=== PATIENT | male | born 1980 | race Caucasian/White ===

== ENCOUNTER 2017-12-25 10:42 | Observation (INO) ==
[2017-12-25 11:24] LABS: Bilirubin,Urine Negative (Negative); Blood,Urine Negative (Negative); Clarity,Urine Clear (Clear); Color,Urine Yellow (Yellow); Glucose,Urine (UA) Normal (Normal); Ketones,Urine Negative (Negative); Leukocyte Esterase,Urine Negative (Negative); Nitrite,Urine Negative (Negative); Protein,Urine Negative (Neg-Trace); Urobilinogen,Urine Normal (Normal)
[2017-12-25 11:49] LABS: Amphetamine Screen,Urine Negative ng/mL (Cutoff=1000); Barbiturate Screen,Urine Negative ng/mL (Cutoff=200); Benzodiazepines Screen,Urine Positive ng/mL (Cutoff=200); Cannabinoid Screen,Urine Negative ng/mL (Cutoff = 50); Cocaine Screen,Urine Positive ng/mL (Cutoff= 300); Opiate Screen,Urine Negative ng/mL (Cutoff=300); Phencyclidine Screen,Urine Negative ng/mL (Cutoff=25)
[2017-12-25 12:07] LABS: Basophils # 0.1 K/mcL (0.0-0.2); Eosinophils # 0.4 K/mcL (0.0-0.6); Eosinophils % 5.8 %; Hematocrit 31.5 % (37.5-50.1); Hemoglobin 11.4 g/dL (12.9-16.9); Immature Granulocytes % 0.3 % (0-4); Lymphocytes # 2.1 K/mcL (0.6-4.6); Lymphocytes % 29.8 %; Mean Corpuscular HGB Conc 36.2 g/dL (31.6-35.5); Mean Corpuscular Hemoglobin 33.3 pg (28.0-33.3); Mean Corpuscular Volume 92.1 fL (83.0-100.0); Mean Platelet Volume 8.8 fL (9.4-12.4); Monocytes # 0.9 K/mcL (0.0-1.3); Monocytes % 12.9 %; Neutrophils # 3.5 K/mcL (1.6-8.9); Platelet Count 199 K/mcL (140-400); Red Blood Count 3.42 M/mcL (4.19-5.50); Red Cell Distribution Width 11.9 % (11.5-14.5); Segmented Neutrophils % 50.2 %; White Blood Count 7.1 K/mcL (4.3-11.1)
[2017-12-25 12:51] LABS: Acetaminophen < 10 mcg/mL (10-20); Alanine Aminotransferase 24 Units/L (7-52); Albumin 4.3 g/dL (3.5-5.7); Albumin/Globulin Ratio 1.8 (1.1-2.2); Alkaline Phosphatase 73 Units/L (34-104); Aspartate Amino Transferase 30 Units/L (13-39); BUN/Creatinine Ratio 13 (6-26); Bilirubin,Direct 0.1 mg/dL (0.0-0.2); Bilirubin,Indirect 0.3 mg/dL (0.0-1.2); Bilirubin,Total 0.4 mg/dL (0.3-1.0); Blood Urea Nitrogen 7 mg/dL (6-20); Calcium 9.4 mg/dL (8.6-10.3); Carbon Dioxide 24 mEq/L (23-29); Chloride 89 mEq/L (98-107); Cholesterol 186 mg/dL (< 200); Ethanol 79 mg/dL (Less than 10); Globulin 2.4 g/dL (2.4-3.5); Glucose 89 mg/dL (70-105); HDL Cholesterol 63 mg/dL (40-59); LDL Cholesterol,Calculated 110 mg/dL (0-99); Osmolality,Calculated 253 (280-300); Potassium 3.5 mEq/L (3.5-5.1); Salicylate < 2.5 mg/dL (15.0-30.0); Sodium 123 mEq/L (136-145); Total Protein 6.7 g/dL (6.4-8.9); Triglycerides 64 mg/dL (< 150); eGFR For African Americans > 60 (> 60); eGFR For Non-African Americans > 60 (> 60)
[2017-12-25 13:12] LABS: Hepatitis A Antibody IgM Nonreactive (Nonreactive); Hepatitis B Core IgM Nonreactive (Nonreactive); Hepatitis B Surface Antigen Nonreactive (Nonreactive); Hepatitis C Virus Antibody Nonreactive (Nonreactive)
[2017-12-25 14:28] LABS: Phenytoin (Dilantin) 7.8 mcg/mL (10.0-20.0)
[2017-12-25 15:09] LABS: Thyroid Stimulating Hormone 1.934 mcIU/mL (0.340-5.600)
[2017-12-25] MEDS ORDERED: Acetaminophen 325 MG TABLET PO PRN (15:58)
[2017-12-25] MEDS ORDERED: Naloxone 0.4 MG/ML INJ IVP PRN (15:58)
[2017-12-25] MEDS ORDERED: *HR* LORazepam 2 MG/ML VIAL IVP PRN (16:01)
[2017-12-25] MEDS ORDERED: Ondansetron 4 MG/2 ML VIAL IVP PRN (16:03)
[2017-12-25] MEDS ORDERED: Loperamide 1 MG/5 ML UDC PO PRN (16:04)
[2017-12-25 16:15] LABS: Uric Acid 2.7 mg/dL (2.3-7.6)
[2017-12-25] MEDS ORDERED: 0.9 % Sodium Chloride 1,000 ML IVC SCH (16:30)
[2017-12-25] MEDS: *HR* Heparin 5,000 UNIT/ML VIAL SQ SCH (17:40)
[2017-12-25 19:54] LABS: BUN/Creatinine Ratio 15 (6-26); Blood Urea Nitrogen 8 mg/dL (6-20); Calcium 9.3 mg/dL (8.6-10.3); Carbon Dioxide 25 mEq/L (23-29); Chloride 95 mEq/L (98-107); Glucose 117 mg/dL (70-105); Osmolality,Calculated 269 (280-300); Potassium 3.7 mEq/L (3.5-5.1); Sodium 130 mEq/L (136-145); eGFR For African Americans > 60 (> 60); eGFR For Non-African Americans > 60 (> 60)
[2017-12-25] MEDS: levETIRAcetam 250 MG TABLET PO SCH (21:03)
[2017-12-25] MEDS: atenoloL 50 MG TABLET PO SCH (21:03)
[2017-12-26 05:10] LABS: Basophils # 0.1 K/mcL (0.0-0.2); Basophils % 1.3 %; Eosinophils # 0.5 K/mcL (0.0-0.6); Eosinophils % 8.8 %; Hematocrit 34.2 % (37.5-50.1); Hemoglobin 11.8 g/dL (12.9-16.9); Immature Granulocytes % 0.2 % (0-4); Lymphocytes # 1.7 K/mcL (0.6-4.6); Mean Corpuscular HGB Conc 34.5 g/dL (31.6-35.5); Mean Corpuscular Hemoglobin 32.6 pg (28.0-33.3); Mean Corpuscular Volume 94.5 fL (83.0-100.0); Mean Platelet Volume 8.9 fL (9.4-12.4); Monocytes # 0.8 K/mcL (0.0-1.3); Monocytes % 13.9 %; Neutrophils # 2.5 K/mcL (1.6-8.9); Platelet Count 212 K/mcL (140-400); Red Blood Count 3.62 M/mcL (4.19-5.50); Red Cell Distribution Width 12.2 % (11.5-14.5); Segmented Neutrophils % 44.8 %; White Blood Count 5.5 K/mcL (4.3-11.1)
[2017-12-26 05:25] LABS: BUN/Creatinine Ratio 18 (6-26); Blood Urea Nitrogen 10 mg/dL (6-20); Calcium 9.5 mg/dL (8.6-10.3); Carbon Dioxide 23 mEq/L (23-29); Chloride 103 mEq/L (98-107); Glucose 124 mg/dL (70-105); Osmolality,Calculated 280 (280-300); Potassium 4.2 mEq/L (3.5-5.1); Sodium 135 mEq/L (136-145); eGFR For African Americans > 60 (> 60); eGFR For Non-African Americans > 60 (> 60)
[2017-12-26] MEDS: *HR* Heparin 5,000 UNIT/ML VIAL SQ SCH (06:12)
[2017-12-26] MEDS ORDERED: Folic Acid 1 MG TABLET PO SCH (09:00)
[2017-12-26] MEDS ORDERED: amLODIPine 5 MG TABLET PO SCH (09:00)
[2017-12-26] MEDS ORDERED: Fluticasone Propionate Nasal 50 MCG/SPRAY BOTTLE NS SCH (09:00)
[2017-12-26] MEDS ORDERED: Loratadine 10 MG TABLET PO SCH (09:00)
[2017-12-26] MEDS ORDERED: lisinopriL 20 MG TABLET PO SCH (09:00)
[2017-12-26] MEDS ORDERED: Thiamine (B-1) 100 MG TABLET PO SCH (09:00)
[2017-12-26] MEDS: atenoloL 50 MG TABLET PO SCH (10:05)
[2017-12-26] MEDS: levETIRAcetam 250 MG TABLET PO SCH (10:08)
[2017-12-26 11:28] VITALS: BP 136/90
== END 2017-12-26 14:54 | disposition other institution (70) ==
LOC: EMEROOARM 10:42 → 2NENU 10:42
PROVIDERS: ADMIT Internal Medicine; ATTEND Internal Medicine

== ENCOUNTER 2019-11-24 01:40 | Inpatient (IN) ==
[2019-11-24] MEDS ORDERED: Naloxone 0.4 MG/ML INJ IVP PRN (02:00)
[2019-11-24] MEDS ORDERED: Ondansetron 4 MG/2 ML VIAL IVP PRN (02:00)
[2019-11-24] MEDS ORDERED: *HR* LORazepam 2 MG/ML VIAL IVP PRN ×3 (02:08)
[2019-11-24 02:47] LABS: Adenovirus Not Detected (Not Detect); Coronavirus 229E Not Detected (Not Detect); Coronavirus HKU1 Not Detected (Not Detect); Coronavirus NL63 Not Detected (Not Detect); Coronavirus OC43 Not Detected (Not Detect)
[2019-11-24 02:49] LABS: Bordetella Pertussis Not Detected (Not Detect); Chlamydophila pneumoniae Not Detected (Not Detect); Human Metapneumovirus Not Detected (Not Detect); Human Rhinovirus/Enterovirus Not Detected (Not Detect); Influenza A Subtype 2009 H1 Not Detected (Not Detect); Influenza B Not Detected (Not Detect); Mycoplasma pneumoniae Not Detected (Not Detect); Parainfluenza Virus 1 Not Detected (Not Detect); Parainfluenza Virus 2 Not Detected (Not Detect); Parainfluenza Virus 3 Not Detected (Not Detect); Parainfluenza Virus 4 Not Detected (Not Detect); Respiratory Syncytial Virus Not Detected (Not Detect)
[2019-11-24] MEDS: Pantoprazole 40 MG in 0.9 % Sodium Chloride Mini Bag 100 ML IVC SCH ×5 (04:10→22:33)
[2019-11-24] MEDS: Ringers Solution, Lactated 1,000 ML IVC SCH ×2 (04:11→11:28)
[2019-11-24 04:48] LABS: Basophils # 0.1 K/mcL (0.0-0.2); Basophils % 1.4 %; Eosinophils # 0.1 K/mcL (0.0-0.6); Eosinophils % 3.3 %; Hematocrit 23.8 % (37.5-50.1); Immature Granulocytes % 0.7 % (0-4); Lymphocytes # 1.1 K/mcL (0.6-4.6); Lymphocytes % 26.5 %; Mean Corpuscular Hemoglobin 33.5 pg (28.0-33.3); Mean Corpuscular Volume 98.3 fL (83.0-100.0); Mean Platelet Volume 9.5 fL (9.4-12.4); Monocytes # 0.6 K/mcL (0.0-1.3); Monocytes % 12.9 %; Neutrophils # 2.4 K/mcL (1.6-8.9); Platelet Count 150 K/mcL (140-400); Red Blood Count 2.42 M/mcL (4.19-5.50); Red Cell Distribution Width 12.2 % (11.5-14.5); Segmented Neutrophils % 55.2 %; White Blood Count 4.3 K/mcL (4.3-11.1)
[2019-11-24 04:49] LABS: INR 1.1; Prothrombin Time 12.2 Seconds (9.4-12.1)
[2019-11-24 04:52] LABS: Hemoglobin 8.1 g/dL (12.9-16.9)
[2019-11-24 05:04] LABS: Alanine Aminotransferase 40 Units/L (7-52); Albumin 3.4 g/dL (3.5-5.7); Albumin/Globulin Ratio 1.8 (1.1-2.2); Alkaline Phosphatase 47 Units/L (34-104); Aspartate Amino Transferase 45 Units/L (13-39); BUN/Creatinine Ratio 34 (6-26); Bilirubin,Total 0.6 mg/dL (0.3-1.0); Blood Urea Nitrogen 21 mg/dL (6-20); Calcium 8.6 mg/dL (8.6-10.3); Carbon Dioxide 18 mEq/L (23-29); Chloride 106 mEq/L (98-107); Globulin 1.9 g/dL (2.4-3.5); Glucose 85 mg/dL (70-105); Magnesium 1.5 mg/dL (1.6-2.6); Osmolality,Calculated 282 (280-300); Phosphorous 2.8 mg/dL (2.7-4.5); Potassium 3.8 mEq/L (3.5-5.1); Sodium 135 mEq/L (136-145); Total Protein 5.3 g/dL (6.4-8.9); eGFR For African Americans > 60 (> 60); eGFR For Non-African Americans > 60 (> 60)
[2019-11-24 10:40] LABS: Hematocrit 21.3 % (37.5-50.1); Hemoglobin 7.2 g/dL (12.9-16.9)
[2019-11-24] MEDS ORDERED: 0.9 % Sodium Chloride 500 ML IVC ONE (11:14)
[2019-11-24] MEDS ORDERED: 0.9 % Sodium Chloride 500 ML ONE (11:16)
[2019-11-24] MEDS ORDERED: 0.9 % Sodium Chloride 250 ML ONE ×2 (11:22→15:04)
[2019-11-24] MEDS ORDERED: Lidocaine -MPF 2% 2 ML VIAL ONE (13:31)
[2019-11-24] MEDS ORDERED: *HR* Propofol 200 MG/20 ML VIAL IVP ONE (13:32)
[2019-11-24] MEDS ORDERED: Ondansetron 4 MG/2 ML VIAL ONE (13:38)
[2019-11-24] MEDS ORDERED: *HR* Midazolam HCl 2 MG/2 ML VIAL ONE (13:40)
[2019-11-24] MEDS ORDERED: EPINEPHrine 1 MG/ML VIAL IM ONE (14:11)
[2019-11-24] MEDS ORDERED: 0.9 % Sodium Chloride 500 ML IVC PRN (14:27)
[2019-11-24] MEDS ORDERED: *HR* EPINEPHrine 1 MG/10 ML SYRINGE ONE (14:38)
[2019-11-24] MEDS: Thiamine (B-1) 100 MG, Folic Acid 1 MG, MVI, adult with vitamin K 10 ML in 0.9 % Sodi... IVPB SCH (17:07)
[2019-11-24 19:34] LABS: Hematocrit 23.9 % (37.5-50.1); Hemoglobin 8.1 g/dL (12.9-16.9)
[2019-11-24] MEDS: Albuterol 2.5 MG/3 ML NEBULIZER IH PRN (19:39)
[2019-11-25] MEDS ORDERED: Benzocaine/Menthol 56 GM AEROSOL SPRAY TP PRN (00:15)
[2019-11-25 01:12] LABS: Hematocrit 20.8 % (37.5-50.1); Hemoglobin 7.3 g/dL (12.9-16.9); Hemoglobin 7.4 g/dL (12.9-16.9); Mean Corpuscular HGB Conc 35.1 g/dL (31.6-35.5); Mean Corpuscular Hemoglobin 32.3 pg (28.0-33.3); Mean Platelet Volume 9.8 fL (9.4-12.4); Red Blood Count 2.26 M/mcL (4.19-5.50); Red Cell Distribution Width 15.5 % (11.5-14.5); White Blood Count 5.3 K/mcL (4.3-11.1)
[2019-11-25 01:13] LABS: Platelet Count 94 K/mcL (140-400)
[2019-11-25 01:31] LABS: Alanine Aminotransferase 23 Units/L (7-52); Albumin 2.7 g/dL (3.5-5.7); Albumin/Globulin Ratio 1.8 (1.1-2.2); Alkaline Phosphatase 32 Units/L (34-104); Aspartate Amino Transferase 27 Units/L (13-39); BUN/Creatinine Ratio 35 (6-26); Bilirubin,Total 0.6 mg/dL (0.3-1.0); Blood Urea Nitrogen 19 mg/dL (6-20); Calcium 7.8 mg/dL (8.6-10.3); Carbon Dioxide 18 mEq/L (23-29); Chloride 108 mEq/L (98-107); Globulin 1.5 g/dL (2.4-3.5); Glucose 82 mg/dL (70-105); Osmolality,Calculated 281 (280-300); Potassium 3.6 mEq/L (3.5-5.1); Sodium 135 mEq/L (136-145); Total Protein 4.2 g/dL (6.4-8.9); eGFR For African Americans > 60 (> 60); eGFR For Non-African Americans > 60 (> 60)
[2019-11-25] MEDS: Pantoprazole 40 MG in 0.9 % Sodium Chloride Mini Bag 100 ML IVC SCH ×5 (03:31→23:11)
[2019-11-25 07:19] LABS: Hematocrit 21.9 % (37.5-50.1); Hemoglobin 7.7 g/dL (12.9-16.9)
[2019-11-25] MEDS: Fluticasone Propionate Nasal 50 MCG/SPRAY BOTTLE NS SCH (07:35)
[2019-11-25] MEDS: Albuterol 2.5 MG/3 ML NEBULIZER IH PRN ×2 (07:42→21:44)
[2019-11-25 12:25] LABS: Hematocrit 21.2 % (37.5-50.1); Hemoglobin 7.4 g/dL (12.9-16.9)
[2019-11-25] MEDS: Thiamine (B-1) 100 MG, Folic Acid 1 MG, MVI, adult with vitamin K 10 ML in 0.9 % Sodi... IVPB SCH (16:27)
[2019-11-25 21:09] LABS: Hemoglobin 7.6 g/dL (12.9-16.9)
[2019-11-26] MEDS: Pantoprazole 40 MG in 0.9 % Sodium Chloride Mini Bag 100 ML IVC SCH ×5 (04:24→23:20)
[2019-11-26 05:10] LABS: Hematocrit 19.5 % (37.5-50.1)
[2019-11-26 05:30] LABS: BUN/Creatinine Ratio 12 (6-26); Blood Urea Nitrogen 6 mg/dL (6-20); Calcium 8.1 mg/dL (8.6-10.3); Carbon Dioxide 20 mEq/L (23-29); Chloride 105 mEq/L (98-107); Glucose 103 mg/dL (70-105); Magnesium 1.6 mg/dL (1.6-2.6); Osmolality,Calculated 274 (280-300); Potassium 3.1 mEq/L (3.5-5.1); Sodium 133 mEq/L (136-145); eGFR For African Americans > 60 (> 60); eGFR For Non-African Americans > 60 (> 60)
[2019-11-26] MEDS: Fluticasone Propionate Nasal 50 MCG/SPRAY BOTTLE NS SCH (07:33)
[2019-11-26] MEDS ORDERED: Potassium Chloride Elixir 20 MEQ/15 ML UDC PO ONE (07:34)
[2019-11-26 16:04] LABS: Hematocrit 26.2 % (37.5-50.1)
[2019-11-26 16:05] LABS: Hemoglobin 9.1 g/dL (12.9-16.9)
[2019-11-26] MEDS: Thiamine (B-1) 100 MG, Folic Acid 1 MG, MVI, adult with vitamin K 10 ML in 0.9 % Sodi... IVPB SCH (17:31)
[2019-11-26 21:43] LABS: Hemoglobin 8.9 g/dL (12.9-16.9)
[2019-11-26] MEDS: Albuterol 2.5 MG/3 ML NEBULIZER IH PRN (23:01)
[2019-11-27 02:40] LABS: Hematocrit 24.3 % (37.5-50.1); Hemoglobin 8.7 g/dL (12.9-16.9)
[2019-11-27 02:51] LABS: BUN/Creatinine Ratio 7 (6-26); Blood Urea Nitrogen 4 mg/dL (6-20); Calcium 8.5 mg/dL (8.6-10.3); Carbon Dioxide 18 mEq/L (23-29); Chloride 106 mEq/L (98-107); Glucose 109 mg/dL (70-105); Magnesium 1.5 mg/dL (1.6-2.6); Osmolality,Calculated 273 (280-300); Sodium 133 mEq/L (136-145); eGFR For African Americans > 60 (> 60); eGFR For Non-African Americans > 60 (> 60)
[2019-11-27] MEDS: Pantoprazole 40 MG in 0.9 % Sodium Chloride Mini Bag 100 ML IVC SCH ×2 (04:20→14:16)
[2019-11-27] MEDS: Thiamine (B-1) 100 MG TABLET PO SCH (11:19)
[2019-11-27] MEDS: Sucralfate 1 GM TABLET PO SCH ×2 (11:19→17:15)
[2019-11-27] MEDS: Fluticasone Propionate Nasal 50 MCG/SPRAY BOTTLE NS SCH (11:20)
[2019-11-27] MEDS: Folic Acid 1 MG TABLET PO SCH (11:20)
[2019-11-28 05:32] LABS: Hematocrit 26.9 % (37.5-50.1); Hemoglobin 9.4 g/dL (12.9-16.9)
[2019-11-28 05:42] LABS: BUN/Creatinine Ratio 9 (6-26); Blood Urea Nitrogen 6 mg/dL (6-20); Calcium 8.8 mg/dL (8.6-10.3); Carbon Dioxide 20 mEq/L (23-29); Chloride 106 mEq/L (98-107); Glucose 102 mg/dL (70-105); Magnesium 1.7 mg/dL (1.6-2.6); Osmolality,Calculated 276 (280-300); Potassium 3.2 mEq/L (3.5-5.1); Sodium 134 mEq/L (136-145); eGFR For African Americans > 60 (> 60); eGFR For Non-African Americans > 60 (> 60)
[2019-11-28 08:35] LABS: Estimated Average Glucose 97 mg/dl
[2019-11-28] MEDS: Folic Acid 1 MG TABLET PO SCH (10:21)
[2019-11-28] MEDS: Thiamine (B-1) 100 MG TABLET PO SCH (10:22)
[2019-11-28] MEDS: Sucralfate 1 GM TABLET PO SCH (10:22)
[2019-11-28] MEDS: Fluticasone Propionate Nasal 50 MCG/SPRAY BOTTLE NS SCH (10:24)
[2019-11-28] MEDS: Albuterol 2.5 MG/3 ML NEBULIZER IH PRN (10:31)
[2019-11-28 10:44] LABS: ABG Base Excess 11 mEq/L (-2 to 3); ABG HCO3 35 mEq/L (21-27); ABG Oxygen Saturation 90 % (95-98); ABG PCO2 40 mmHg (35-45); ABG PH 7.55 pH Units (7.32-7.45); ABG PO2 52 mmHg (85-104); ABG TCO2 36 mEq/L (20-26)
[2019-11-28 12:24] VITALS: BP 114/75
== END 2019-11-28 14:34 | disposition home or self-care (01) | DRG 241 ==
LOC: CDU → SUATTDRO 01:40 → 2NNU 02:50 → SUATTDRO 13:57 → 3ANU 11-27 14:23
PROVIDERS: ADMIT Internal Medicine; ATTEND Internal Medicine

== ENCOUNTER 2020-09-19 01:00 | Observation (INO) ==
[2020-09-19] MEDS ORDERED: Naloxone 0.4 MG/ML INJ IVP PRN (07:30)
[2020-09-19] MEDS ORDERED: Ondansetron 4 MG/2 ML VIAL IVP PRN (07:30)
[2020-09-19] MEDS ORDERED: *HR* LORazepam 2 MG/ML VIAL IVP PRN ×3 (07:33→07:35)
[2020-09-19 08:09] LABS: Basophils # 0.1 K/mcL (0.0-0.2); Basophils % 2.2 %; Eosinophils # 0.5 K/mcL (0.0-0.6); Eosinophils % 11.1 %; Hematocrit 35.4 % (37.5-50.1); Hemoglobin 12.3 g/dL (12.9-16.9); Immature Granulocytes % 0.2 % (0-4); Lymphocytes # 1.9 K/mcL (0.6-4.6); Lymphocytes % 41.2 %; Mean Corpuscular HGB Conc 34.7 g/dL (31.6-35.5); Mean Corpuscular Hemoglobin 33.2 pg (28.0-33.3); Mean Corpuscular Volume 95.7 fL (83.0-100.0); Mean Platelet Volume 8.5 fL (9.4-12.4); Monocytes # 0.6 K/mcL (0.0-1.3); Monocytes % 12.7 %; Neutrophils # 1.5 K/mcL (1.6-8.9); Platelet Count 207 K/mcL (140-400); Red Cell Distribution Width 12.3 % (11.5-14.5); Segmented Neutrophils % 32.6 %; White Blood Count 4.5 K/mcL (4.3-11.1)
[2020-09-19 08:17] LABS: Prothrombin Time 11.2 Seconds (9.4-12.1)
[2020-09-19 08:19] LABS: Activated Partial Thrombo Time 29.3 Seconds (26.0-36.0)
[2020-09-19 08:29] LABS: Magnesium 1.8 mg/dL (1.6-2.6); Phosphorous 3.2 mg/dL (2.7-4.5)
[2020-09-19] MEDS ORDERED: Albuterol 2.5 MG/3 ML NEBULIZER IH PRN (08:49)
[2020-09-19 08:58] LABS: Amylase 340 Units/L (29-103); Ethanol 150 mg/dL (Less than 10); Lipase 1403 Units/L (11-82)
[2020-09-19] MEDS: Fluticasone Propionate Nasal 50 MCG/SPRAY BOTTLE NS SCH (09:49)
[2020-09-19] MEDS: Magnesium Oxide 400 MG TABLET PO SCH ×2 (10:32→21:24)
[2020-09-19] MEDS: Sucralfate 1 GM TABLET PO SCH ×2 (10:32→17:23)
[2020-09-19] MEDS: Zonisamide 100 MG CAPSULE PO SCH ×2 (10:33→21:24)
[2020-09-19] MEDS: *HR* Heparin 5,000 UNIT/ML VIAL SQ SCH (17:23)
[2020-09-19] MEDS ORDERED: Thiamine (B-1) 100 MG, Folic Acid 1 MG, MVI, adult with vitamin K 10 ML in 0.9 % Sodi... IVPB SCH (18:00)
[2020-09-20 00:07] LABS: Amphetamine Screen,Urine Negative ng/mL (Cutoff=1000); Barbiturate Screen,Urine Negative ng/mL (Cutoff=200); Benzodiazepines Screen,Urine Negative ng/mL (Cutoff=200); Cannabinoid Screen,Urine Negative ng/mL (Cutoff = 50); Cocaine Screen,Urine Positive ng/mL (Cutoff= 300); Opiate Screen,Urine Negative ng/mL (Cutoff=300); Phencyclidine Screen,Urine Negative ng/mL (Cutoff=25)
[2020-09-20] MEDS: *HR* Heparin 5,000 UNIT/ML VIAL SQ SCH (05:16)
[2020-09-20] MEDS: Sucralfate 1 GM TABLET PO SCH ×2 (07:56→11:28)
[2020-09-20] MEDS: Magnesium Oxide 400 MG TABLET PO SCH (07:56)
[2020-09-20] MEDS: Fluticasone Propionate Nasal 50 MCG/SPRAY BOTTLE NS SCH (07:57)
[2020-09-20] MEDS: Zonisamide 100 MG CAPSULE PO SCH (07:57)
[2020-09-20 10:44] VITALS: BP 123/82
== END 2020-09-20 13:58 | disposition home health service (06) ==
LOC: 3ANU
PROVIDERS: ADMIT Internal Medicine; ATTEND Internal Medicine